=== PATIENT | male | born 1965 | race Caucasian/White ===

== ENCOUNTER 2025-06-29 14:27 | Emergency (ER) | payer OTHER ==
[~2025-06-29] VITALS: Ht 170.2 cm; Wt 82.0 kg
[2025-06-29 14:30] VITALS: O2SAT 99
[2025-06-29] MEDS: LIDOCAINE HCL 1% 20ML VIAL INFIL ONE (14:45)
[2025-06-29] MEDS ORDERED: ACETAMINOPHEN 500MG TABLET PO ONE (14:45)
[2025-06-29] MEDS ORDERED: TETANUS, DIPHTHERIA, PERTUSSIS VAC/PF 0.5ML (>10YR OLD) IM ONE (14:45)
[2025-06-29 16:04] LABS: BASOPHILS % 0.5 % (0.0-2.0); EOSINOPHILS % 1.4 % (0.0-5.0); HEMATOCRIT. 43.2 % (42.0-52.0); HEMOGLOBIN. 15.0 g/dL (14.0-18.0); LYMPHOCYTES % 18.2 % (20.0-50.0); MEAN PLATELET VOLUME 9.8 fl (7.4-10.4); MONOCYTES % 10.6 % (2.0-8.0); NEUTROPHILS % 69.3 % (40.0-76.0); PLATELET 189 x1000/uL (130-400); RED BLOOD CELL COUNT 4.68 mill/uL (4.7-6.1); RED CELL DISTRIBUTION WIDTH 12.2 % (11.6-14.6)
[2025-06-29 16:18] LABS: INR 1.0
[2025-06-29 16:19] LABS: CREATININE 1.1 mg/dL (0.6-1.3)
[2025-06-29 16:20] LABS: UREA NITROGEN BLOOD 13 mg/dL (9-23)
[2025-06-29 16:21] LABS: ASPARTATE AMINOTRANSFERASE 20 IU/L (<34); BILIRUBIN DIRECT < 0.1 mg/dL (<=3.0)
[2025-06-29 16:22] LABS: BILIRUBIN TOTAL 0.4 mg/dL (0.1-1.0); PROTEIN TOTAL 6.7 g/dL (6.0-8.3)
[2025-06-29 17:08] VITALS: TEMP 98.6
[2025-06-29] MEDS: ACETAMINOPHEN 500MG TABLET PO NR (17:08)
[2025-06-29] MEDS: TETANUS, DIPHTHERIA, PERTUSSIS VAC/PF 0.5ML (>10YR OLD) IM ONE (17:09)
[2025-06-29 21:18] VITALS: BP 142/76; PULSE 82; RESP 18; O2SAT 98
== END 2025-06-29 21:19 | disposition home or self-care (01) ==
LOC: ER 14:27
DX: S01.21XA Laceration without foreign body of nose, initial encounter (principal); S01.81XA Laceration without foreign body of other part of head, initial encounter; E11.9 Type 2 diabetes mellitus without complications; G31.9 Degenerative disease of nervous system, unspecified; I10 Essential (primary) hypertension; I67.82 Cerebral ischemia; Z79.899 Other long term (current) drug therapy; Y04.0XXA Assault by unarmed brawl or fight, initial encounter; Y93.89 Activity, other specified; Y92.89 Other specified places as the place of occurrence of the external cause; Y99.8 Other external cause status
CPT/HCPCS: 80076; 80048; 85025; 85610; 85730; 86850; 86900; 86901; 36415; 70450; 70486; 72125; 90715; 12013; 90471; 99285; J2003; Z7610